=== PATIENT | male | born 1995 | race Caucasian/White ===

== ENCOUNTER → 2022-07-14 | Outpatient (REF) ==
--- NOTE | 2022-07-14 16:08 | Diagnostic Imaging Report ---
INDICATION: Fall with left knee injury and pain AP, oblique and lateral views of the left knee are obtained. FINDINGS: No acute fracture or dislocation is identified. No abnormal lytic or sclerotic focus is seen, and there is no radiopaque foreign body. IMPRESSION: No acute abnormality. Dictated by: Dictated on workstation # [id number]
== END | disposition home or self-care (01) ==
LOC: OCC 15:42
PROVIDERS: ATTEND Family Medicine
DX: Z01.818 Encounter for other preprocedural examination (principal)
CPT/HCPCS: 73562